=== PATIENT | male | born 1960 | race Caucasian/White ===

== ENCOUNTER → 2016-12-10 | Outpatient (CLI) | payer OTHER ==
[~2016-12-10] MED LIST: HYDROCHLOROTHIA25 MG PO; NORVASC10 MG PO; OMEPRAZOLE40 M1 PO; SODIUM BICARBO650 MG PO
--- NOTE | ~2016-12-10 | CR63 ---
[facility]. [facility] Service of [facility] & [facility] RADIOLOGY TEXT RESULTS PATIENT: JOÃO STINSON LOCATION: [facility] : 56 UNIT #: [id number] AGE: [address]: Trung Wild MD SEX: M ORDER DR: [id number] [place] [id number] O MR#: [id number] Acc #: [id number] NAME: JOÃO STINSON : 1960 SEX: M STUDY DATE/TIME: 12/10/2016 13:42 UNIT: [facility] ROOM: STUDY DESCRIPTION: CR Chest 2 View Attending Physician: Trung Wild M.D. Referring Physician: Trung Wild M.D. Ordering Physician: Trung Wild M.D. Primary Care Physician: Trung Wild M.D. MEDICAL IMAGING REPORT This report is preliminary unless electronic signature is present. EXAM Chest, 12/10/2016; [facility]. HISTORY 56-year-old male patient left lower lateral rib pain and swelling. Symptoms x2 weeks. History of cough, short of breath. COMPARISON None. FINDINGS PA and lateral chest views show normal cardiac size and configuration. Hilar structures and mediastinal contours are preserved. Interstitial markings are prominent throughout both lungs. There is no pneumothorax. Costophrenic angles are preserved. No displaced rib fracture. IMPRESSION 1. No acute chest finding. 2. Generalized interstitial prominence probably fibrosis. Dictated by... Ryan Rivas M.D. THIS IS AN ELECTRONICALLY VERIFIED REPORT Ryan Rivas M.D. at 12/11/2016 8:02 AM KRISTEN/reji TD: 12/10/2016 18:43 JOB #: [id number] MEDICAL IMAGING REPORT Page 1 of 1
--- NOTE | ~2016-12-10 | CR212 ---
[facility]. [facility] A Service of [facility] & [facility] RADIOLOGY TEXT RESULTS PATIENT: JOÃO STINSON LOCATION: [facility] : 56 UNIT #: [id number] AGE: [address]: Trung Wild MD SEX: M ORDER DR: [id number] [address] [address] [id number] O MR#: [id number] Acc #: [id number] NAME: JOÃO STINSON : 1960 SEX: M STUDY DATE/TIME: 12/10/2016 13:42 UNIT: [facility] ROOM: STUDY DESCRIPTION: CR Ribs Unilateral 2 View Lt Attending Physician: Trung Wild M.D. Referring Physician: Trung Wild M.D. Ordering Physician: Trung Wild M.D. Primary Care Physician: Trung Wild M.D. MEDICAL IMAGING REPORT This report is preliminary unless electronic signature is present. EXAM Left ribs HISTORY Lower rib pain for 2 weeks. No known injury. FINDINGS Detailed views of the left ribs demonstrates no fracture deformity. No lytic or blastic lesions. Underlying thorax unremarkable. Soft tissues appear normal. IMPRESSION Negative left ribs Dictated by... Mary Kate Weiner M.D. THIS IS AN ELECTRONICALLY VERIFIED REPORT Mary Kate Weiner M.D. at 12/11/2016 4:04 PM ADALBERTO/ingrid TD: 12/10/2016 19:41 JOB #: [id number] MEDICAL IMAGING REPORT Page 1 of 1
== END | disposition home or self-care (01) ==
LOC: SRAD 13:37
DX: R07.81 Pleurodynia (principal); R22.2 Localized swelling, mass and lump, trunk
CPT/HCPCS: 71020; 71100